=== PATIENT | male | born 1995 | race Caucasian/White ===

== ENCOUNTER 2025-08-28 08:35 | Emergency (ER) | payer SELFPAY ==
[~2025-08-28] VITALS: Ht 188 cm; Wt 83.6 kg
[2025-08-28 08:40] VITALS: BP 127/90; PULSE 75; RESP 15; TEMP 97; O2SAT 98
== END 2025-08-28 10:22 | disposition left against medical advice (07) ==
LOC: ER 08:35
DX: M54.9 Dorsalgia, unspecified (principal); Z79.899 Other long term (current) drug therapy